=== PATIENT | male | born 1970 | race Caucasian/White ===

== ENCOUNTER → 2016-03-21 | Outpatient (CLI) | payer OTHER ==
[~2016-03-21] MED LIST: NEXI20CA PO
[2016-03-26 10:16] LABS: TESTOSTERONE %FREE+WEAKLY BOUN 25.5 % (9.0-46.0); TESTOSTERONE FREE+WEAKLY BOUND 46.9 ng/dL (40.0-250.0)
== END ==
LOC: M LAB 10:25
PROVIDERS: ATTEND Internal Medicine Endocrinology, Diabetes & Metabolism
DX: E29.1 Testicular hypofunction (principal)

== ENCOUNTER 2018-03-03 12:56 | Day surgery (SDC) | payer OTHER ==
[~2018-03-03] VITALS: Ht 175.3 cm; Wt 97.5 kg
[~2018-03-03 12:56] MED LIST changes: +NS 1,000 ML IV ONE
[2018-03-03] MEDS ORDERED: LIDOCAINE 2% INJ 100 MG/5 ML SDV (FOR ANES.) As Ordered ONE (13:39)
[2018-03-03] MEDS ORDERED: PROPOFOL 200 MG/20 ML VIAL As Ordered ONE ×2 (13:39→14:15)
--- NOTE | 2018-03-03 14:35 | ROOR ---
Patient Name: Archie Childs Procedure Date: 03/03/2018 1:56 PM Date of : 1970 Age: 47 Room: [facility] Gender: Male Note Status: Finalized Procedure: Upper GI endoscopy Indications: Surveillance for malignancy due to personal history of Norris's esophagus Providers: Cory BELL MD Referring MD: RUSLAN ENCINAS MD Requesting Provider: Medicines: Monitored Anesthesia Care Complications: No immediate complications. Procedure: Pre-Anesthesia Assessment: - The heart rate, respiratory rate, oxygen saturations, blood pressure, adequacy of pulmonary ventilation, and response to care were monitored throughout the procedure. The Endoscope was introduced through the mouth, and advanced to the second part of duodenum. The upper GI endoscopy was accomplished without difficulty. The patient tolerated the procedure well. Findings: There were esophageal mucosal changes secondary to established long-segment Norris's disease present in the lower third of the esophagus. The maximum longitudinal extent of these mucosal changes was 9 cm in length. Mucosa was biopsied with a cold forceps for histology randomly at intervals of 2 cm in the lower third of the esophagus and from 24 to 33 cm from the incisors. A total of 5 specimen bottles were sent to pathology. A few 5 to 7 mm semi-sessile polyps were found in the gastric fundus and in the gastric body. The polyp was removed with a cold snare. Polyp resection was incomplete, and the resected tissue was partially retrieved. A medium-sized hiatal hernia was present. The exam was otherwise without abnormality. Impression: - Esophageal mucosal changes secondary to established long-segment (9 cm) Norris's esophagus. Circumferential, smooth, without nodularity. Biopsied 5-8 specimens every 2 cm. - Multiple fundic gland polyps seen. The polyps were resected with a cold snare. The resected tissue was partially retrieved. - Medium to large-sized hiatal hernia. - The examination was otherwise normal. - Poor LES tone. Recommendation: - Use a proton pump inhibitor PO BID indefinitely. - Telephone endoscopist for pathology results in 2 weeks. Cory Bell MD Cory BELL MD 03/03/2018 2:34:51 PM This report has been signed electronically. Number of Addenda: 0 Note Initiated On: 03/03/2018 1:56 PM Estimated Blood Loss: Estimated blood loss: none.
[2018-03-03 14:47] VITALS: BP 143/86
== END 2018-03-03 15:00 | disposition home or self-care (01) ==
LOC: M OPP 12:56
PROVIDERS: ATTEND Internal Medicine Gastroenterology
DX: K31.7 Polyp of stomach and duodenum (principal); K44.9 Diaphragmatic hernia without obstruction or gangrene; K22.70 Barrett's esophagus without dysplasia; Z91.048 Other nonmedicinal substance allergy status

== ENCOUNTER 2020-09-20 15:59 | Emergency (ER) | payer OTHER ==
[~2020-09-20] VITALS: Ht 177.8 cm; Wt 100.4 kg
[~2020-09-20 15:59] MED LIST changes: -NS 1,000 ML IV ONE
[2020-09-20 18:13] LABS: BASO # 0.1 10^3/uL (0.0-0.2); BASO % 0.9 % (0.0-1.0); EOS # 0.2 10^3/uL (0.0-0.5); EOS % 3.7 % (0.0-3.0); HEMATOCRIT 43.6 % (42.0-52.0); HEMOGLOBIN 15.1 g/dl (13.5-17.5); LYMPH # 1.4 10^3/uL (1.5-5.0); MEAN CORPUSCULAR HEMOGLOBIN 30.2 pg (27.0-33.0); MEAN CORPUSCULAR HGB CONC 34.6 g/dl (32.0-36.5); MEAN CORPUSCULAR VOLUME 87.2 fl (80.0-96.0); MONO # 0.7 10^3/uL (0.0-0.8); NEUTROPHILS # 3.1 10^3/uL (1.5-8.5); NEUTROPHILS % 56.2 % (36.0-66.0); PLATELET COUNT, AUTOMATED 223 10^3/uL (150-450); WHITE BLOOD COUNT 5.5 10^3/uL (4.0-10.0)
--- NOTE | 2020-09-20 18:25 | REPVR ---
PROCEDURE INFORMATION: Exam: CT Head Without Contrast Exam date and time: 09/20/2020 5:50 PM Age: 50 years old Clinical indication: Pain; Headache; Additional info: Intermittent QUINONES and jaw pain TECHNIQUE: Imaging protocol: Computed tomography of the head without contrast. Radiation optimization: All CT scans at this facility use at least one of these dose optimization techniques: automated exposure control; mA and/or kV adjustment per patient size (includes targeted exams where dose is matched to clinical indication); or iterative reconstruction. COMPARISON: No relevant prior studies available. FINDINGS: Brain: No acute intracranial hemorrhage, cerebral edema, or midline shift. Cerebral ventricles: No hydrocephalus. Paranasal sinuses: There is no acute sinusitis. Mastoid air cells: Visualized mastoid air cells are well aerated. Orbital cavity: Unremarkable as visualized. Bones/joints: No acute fracture. Soft tissues: Unremarkable. IMPRESSION: No acute intracranial abnormality. Electronically signed by: Bacilio Caraballo On 09/20/2020 18:24:29 PM
--- NOTE | 2020-09-20 18:27 | REPVR ---
PROCEDURE INFORMATION: Exam: CT Maxillofacial Without Contrast Exam date and time: 09/20/2020 5:50 PM Age: 50 years old Clinical indication: Jaw pain; Additional info: Intermittent QUINONES and jaw pain TECHNIQUE: Imaging protocol: Computed tomography images of the face without contrast. Radiation optimization: All CT scans at this facility use at least one of these dose optimization techniques: automated exposure control; mA and/or kV adjustment per patient size (includes targeted exams where dose is matched to clinical indication); or iterative reconstruction. COMPARISON: No relevant prior studies available. FINDINGS: Orbital cavity: Orbits are normal. Globes are unremarkable. Bones/joints: No acute fracture. Paranasal sinuses: Normal. No air-fluid levels. Soft tissues: Unremarkable. IMPRESSION: No acute findings. Electronically signed by: Bacilio Caraballo On 09/20/2020 18:26:51 PM
[2020-09-20 18:35] LABS: ERYTHROCYTE SEDIMENTATION RATE 5 mm/hr (0-20)
[2020-09-20 19:17] VITALS: BP 129/88
== END 2020-09-20 19:18 | disposition home or self-care (01) ==
LOC: M ED 15:59
DX: R51.9 Headache, unspecified (principal); K21.9 Gastro-esophageal reflux disease without esophagitis; F17.200 Nicotine dependence, unspecified, uncomplicated; Z79.899 Other long term (current) drug therapy; Z91.89 Other specified personal risk factors, not elsewhere classified

== ENCOUNTER 2020-09-26 11:40 | Day surgery (SDC) | payer OTHER ==
[~2020-09-26] VITALS: Ht 177.8 cm; Wt 99.3 kg
[~2020-09-26 11:40] MED LIST changes: +NS 1,000 ML IV SCH
[2020-09-26] MEDS ORDERED: fentaNYL 100 MCG/2 ML INJECTION (J3010) As Ordered ONE (12:54)
[2020-09-26] MEDS ORDERED: propofoL 500 MG/50 ML VIAL As Ordered ONE (12:55)
[2020-09-26] MEDS ORDERED: LIDOCAINE 2% 100MG/5ML SDV (FOR ANES.) As Ordered ONE (13:37)
--- NOTE | 2020-09-26 13:50 | ROOR ---
Patient Name: Archie Childs Procedure Date: 09/26/2020 1:11 PM Date of : 1970 Age: 50 Room: [facility] Gender: Male Note Status: Finalized Procedure: Upper GI endoscopy Indications: Surveillance for malignancy due to personal history of Norris's esophagus Providers: Cory Bell MD Referring MD: RUSLAN ENCINAS MD Requesting Provider: Medicines: Monitored Anesthesia Care Complications: No immediate complications. Procedure: Pre-Anesthesia Assessment: - The heart rate, respiratory rate, oxygen saturations, blood pressure, adequacy of pulmonary ventilation, and response to care were monitored throughout the procedure. The Endoscope was introduced through the mouth, and advanced to the second part of duodenum. The upper GI endoscopy was accomplished without difficulty. The patient tolerated the procedure well. Findings: There were esophageal mucosal changes secondary to established long-segment Norris's disease present in the lower third of the esophagus. The maximum longitudinal extent of these mucosal changes was 9 cm in length. Mucosa was biopsied with a cold forceps for histology randomly at intervals of 1.5 cm from 29 to 36 cm from the incisors. A total of 5 specimen bottles were sent to pathology. A medium-sized hiatal hernia was present. Multiple 5 mm sessile fundic gland polyps with no stigmata of recent bleeding were found in the gastric body. The exam of the stomach was otherwise normal. The examined duodenum was normal. Impression: - Esophageal mucosal changes secondary to established long-segment (9 cm) Norris's disease. Mucosa is smooth, no nodularity. Biopsied. - A slight change in caliber of the esophagus is noted from squamous lined to barretts epithelium lined portions of the esophagus, but no stricture is seen. - Medium-sized hiatal hernia. - Multiple fundic gland polyps. - Normal examined duodenum. Recommendation: - Telephone endoscopist for pathology results in 2 weeks. - Repeat upper endoscopy in 3 years for surveillance. (provided biopsies do not show significant dysplasia) - Continue present medications. Procedure Code(s): --- Professional --- 35919, Esophagogastroduodenoscopy, flexible, transoral; with biopsy, single or multiple Diagnosis Code(s): --- Professional --- K31.7, Polyp of stomach and duodenum K44.9, Diaphragmatic hernia without obstruction or gangrene K22.70, Norris's esophagus without dysplasia CPT copyright 2019 [employer]. All rights reserved. The codes documented in this report are preliminary and upon punch press operator helper review may be revised to meet current compliance requirements. Cory Bell MD Cory Bell MD 09/26/2020 1:49:49 PM Electronically signed by Cory Bell MD Number of Addenda: 0 Note Initiated On: 09/26/2020 1:11 PM Estimated Blood Loss: Estimated blood loss: none.
[2020-09-26] MEDS ORDERED: propofoL 200 MG/20 ML VIAL As Ordered ONE (13:58)
--- NOTE | 2020-09-26 14:04 | ROOR ---
Patient Name: Archie Childs Procedure Date: 09/26/2020 1:12 PM Date of : 1970 Age: 50 Room: [facility] Gender: Male Note Status: Finalized Procedure: Colonoscopy Indications: Screening for colorectal malignant neoplasm Providers: Cory Bell MD Referring MD: RUSLAN ENCINAS MD Requesting Provider: Medicines: Monitored Anesthesia Care Complications: No immediate complications. Procedure: Pre-Anesthesia Assessment: - The heart rate, respiratory rate, oxygen saturations, blood pressure, adequacy of pulmonary ventilation, and response to care were monitored throughout the procedure. The Colonoscope was introduced through the anus and advanced to the cecum, identified by appendiceal orifice and ileocecal valve. The colonoscopy was performed without difficulty. The patient tolerated the procedure well. The quality of the bowel preparation was adequate. Findings: The perianal and digital rectal examinations were normal. A diminutive polyp was found in the cecum. The polyp was sessile. The polyp was removed with a jumbo cold forceps. Resection and retrieval were complete. Small Internal Hemorrhoids. The exam was otherwise normal throughout the examined colon. Impression: - One diminutive polyp in the cecum, removed with a jumbo cold forceps. Resected and retrieved. - Small Internal Hemorrhoids. - The exam was otherwise normal to the cecum. Recommendation: - Repeat colonoscopy in 5 years for surveillance. - Telephone endoscopist for pathology results in 2 weeks. Procedure Code(s): --- Professional --- 07624, Colonoscopy, flexible; with biopsy, single or multiple Diagnosis Code(s): --- Professional --- Z12.11, Encounter for screening for malignant neoplasm of colon K63.5, Polyp of colon CPT copyright 2019 [employer]. All rights reserved. The codes documented in this report are preliminary and upon player piano technician review may be revised to meet current compliance requirements. Cory Bell MD Cory Bell MD 09/26/2020 2:03:36 PM Electronically signed by Cory Bell MD Number of Addenda: 0 Note Initiated On: 09/26/2020 1:12 PM Estimated Blood Loss: Estimated blood loss: none.
[2020-09-26 14:40] VITALS: BP 140/85
== END 2020-09-26 14:43 | disposition home or self-care (01) ==
LOC: M OPP 11:40
PROVIDERS: ATTEND Internal Medicine Gastroenterology
DX: Z12.11 Encounter for screening for malignant neoplasm of colon (principal); D12.0 Benign neoplasm of cecum; K64.8 Other hemorrhoids; K44.9 Diaphragmatic hernia without obstruction or gangrene; K31.7 Polyp of stomach and duodenum; K22.70 Barrett's esophagus without dysplasia; K21.9 Gastro-esophageal reflux disease without esophagitis; Z91.048 Other nonmedicinal substance allergy status; Z01.812 Encounter for preprocedural laboratory examination; Z20.828 Contact with and (suspected) exposure to other viral communicable diseases
CPT/HCPCS: 43239; 45380; 88305; J3010; U0002

== ENCOUNTER → 2023-09-18 | Outpatient (CLI) | payer OTHER ==
[~2023-09-18] MED LIST changes: -NS 1,000 ML IV SCH
[2023-09-18 17:53] LABS: BASO # 0.1 10^3/uL (0.0-0.2); BASO % 0.9 % (0.0-1.0); EOS # 0.3 10^3/uL (0.0-0.5); EOS % 5.1 % (0.0-3.0); HEMATOCRIT 42.1 % (42.0-52.0); HEMOGLOBIN 14.9 g/dl (13.5-17.5); LYMPH # 1.8 10^3/uL (1.5-5.0); LYMPH % 32.1 % (24.0-44.0); MEAN CORPUSCULAR HEMOGLOBIN 31.8 pg (27.0-33.0); MEAN CORPUSCULAR HGB CONC 35.4 g/dl (32.0-36.5); MEAN CORPUSCULAR VOLUME 89.8 fl (80.0-96.0); MONO # 0.6 10^3/uL (0.0-0.8); MONO % 11.1 % (2.0-8.0); NEUTROPHILS # 2.8 10^3/uL (1.5-8.5); NEUTROPHILS % 50.4 % (36.0-66.0); PLATELET COUNT, AUTOMATED 222 10^3/uL (150-450); RED BLOOD COUNT 4.69 10^6/uL (4.30-6.10); WHITE BLOOD COUNT 5.5 10^3/uL (4.0-10.0)
[2023-09-18 18:10] LABS: ALBUMIN 3.7 G/DL (3.2-5.2); ALKALINE PHOSPHATASE 107 U/L (46-116); ALT/SGPT 26 U/L (7.0-40); AST/SGOT 15 U/L (<34); BILIRUBIN,TOTAL 0.5 MG/DL (0.3-1.2); BLOOD UREA NITROGEN 14 MG/DL (9-23); CALCIUM LEVEL 9.1 MG/DL (8.5-10.1); CARBON DIOXIDE LEVEL 26 MMOL/L (20-31); CHLORIDE LEVEL 108 MMOL/L (98-107); CREATININE FOR GFR 1.08 MG/DL (0.70-1.30); GLOMERULAR FILTRATION RATE > 60.0 (>56); GLUCOSE, FASTING 132 MG/DL (60-100); POTASSIUM SERUM 4.1 MMOL/L (3.5-5.1); SODIUM LEVEL 138 MMOL/L (136-145); TOTAL PROTEIN 6.8 G/DL (5.7-8.2)
== END ==
LOC: M LAB 17:26
PROVIDERS: ATTEND Internal Medicine
DX: K21.9 Gastro-esophageal reflux disease without esophagitis (principal)